=== PATIENT | female | born 1960 | race American Indian/Alaskan Native ===

== ENCOUNTER 2016-04-16 16:10 | Emergency (ER) | payer MEDICAID ==
[2016-04-16 17:23] VITALS: BP 153/89
--- NOTE | 2016-04-16 21:10 | Emergency Department Report ---
- General Chief Complaint: Upper Respiratory Infection Stated Complaint: FLU SYMPTOMS Source: patient Mode of arrival: Ambulatory Limitations: No Limitations - History of Present Illness Initial Comments: 55-year-old known diabetic and hypertensive female comes in for flulike symptoms. Patient complains of cough fever nausea vomiting diarrhea a few days back. Now she symptoms have been present for the last 2 weeks. She does tell me that she had taken some once penicillin it seemed to help with her symptoms and it came right back. She admits to coughing up yellowish greenish sputum. She is currently on insulin Lantus 20 units daily at bedtime lisinopril 40 daily metformin 1000 3 times a day the parotid 10 mg by mouth twice a day amlodipine 5 mg by mouth daily. MD Complaint: fever, cough, sore throat, nasal congestion, sinus pain - Related Data Previous Rx's Medication Instructions Recorded Last Taken Type Cyclobenzaprine HCl [Flexeril 5 MG 5 mg PO Q8HR #20 tablet 01/07/15 Unknown Rx TAB] traMADol [Ultram 50 MG tab] 50 mg PO Q6HR PRN #20 tablet 01/07/15 Unknown Rx Azithromycin [Zithromax] 250 mg PO QDAY #6 tablet 04/16/16 Unknown Rx Ibuprofen [Motrin 800 MG tab] 800 mg PO Q8HR PRN #30 tablet 04/16/16 Unknown Rx Allergies Allergy/AdvReac Type Severity Reaction Status Date / Time No Known Allergies Allergy Verified 04/16/16 17:19 ED Review of Systems ROS: Stated complaint: FLU SYMPTOMS Other details as noted in HPI Constitutional: fever ENT: throat pain, congestion Respiratory: cough. denies: shortness of breath, SOB with exertion Cardiovascular: denies: chest pain, palpitations Gastrointestinal: nausea, vomiting, diarrhea Neurological: headache ED Past Medical Hx - Past Medical History Hx Hypertension: Yes Hx Diabetes: Yes Additional medical history: SLEEP APNEA. OBESITY - Surgical History Additional Surgical History: - Social History Smoking Status: Never Smoker Substance Use Type: None - Medications Home Medications: Home Medications Medication Instructions Recorded Confirmed Last Taken Type Cyclobenzaprine HCl [Flexeril 5 MG 5 mg PO Q8HR #20 tablet 01/07/15 Unknown Rx TAB] traMADol [Ultram 50 MG tab] 50 mg PO Q6HR PRN #20 tablet 01/07/15 Unknown Rx Azithromycin [Zithromax] 250 mg PO QDAY #6 tablet 04/16/16 Unknown Rx Ibuprofen [Motrin 800 MG tab] 800 mg PO Q8HR PRN #30 tablet 04/16/16 Unknown Rx ED Physical Exam - General Limitations: No Limitations General appearance: alert, in no apparent distress - Head Head exam: Present: atraumatic, normocephalic - Eye Eye exam: Present: normal appearance, PERRL, EOMI - ENT ENT exam: Present: normal orophraynx, mucous membranes moist, TM's normal bilaterally - Neck Neck exam: Present: normal inspection, full ROM. Absent: tenderness, lymphadenopathy - Respiratory Respiratory exam: Present: normal lung sounds bilaterally. Absent: respiratory distress, wheezes - Cardiovascular Cardiovascular Exam: Present: regular rate, normal rhythm, normal heart sounds - GI/Abdominal GI/Abdominal exam: Present: soft. Absent: distended, tenderness - Extremities Exam Extremities exam: Absent: tenderness, pedal edema ED Course Vital Signs 04/16/16 17:19 Temperature 98.4 F Pulse Rate 112 H Respiratory 20 Rate Blood Pressure 153/89 O2 Sat by Pulse 98 Oximetry ED Medical Decision Making - Medical Decision Making Patient's been evaluated by this provider and fast. Would discharge patient on a Z-Dustin will recommend her to get Tussi free Robitussin for your cough. Ibuprofen for pain was prescribed. Critical care attestation.: If time is entered above; I have spent that time in minutes in the direct care of this critically ill patient, excluding procedure time. ED Disposition Clinical Impression: Upper respiratory infection Qualifiers: URI type: unspecified URI Qualified Code(s): J06.9 - Acute upper respiratory infection, unspecified Disposition: DISCHARGED TO HOME OR SELFCARE Is pt being admited?: No Does the pt Need Aspirin: No Condition: Stable Instructions: Upper Respiratory Infection (ED) Additional Instructions: take medication as prescribed. Follow up with your Primary Care Provider in 3- 5 days in no improvement. Tussi Free Robitussin for cough. Prescriptions: Azithromycin [Zithromax] 250 mg PO QDAY #6 tablet Ibuprofen [Motrin 800 MG tab] 800 mg PO Q8HR PRN #30 tablet PRN Reason: anti-inflammatory/pain/fever Referrals: KODAK ARELLANO MD [Primary Care Provider] - 3-5 Days Forms: Work/School Release Form(ED)
[2016-04-16] MEDS ORDERED: TYLENOL #3 PO ONE (21:32)
== END 2016-04-16 21:19 | disposition home or self-care (01) ==
LOC: ED 16:10
DX: J06.9 Acute upper respiratory infection, unspecified (principal); I10 Essential (primary) hypertension; E11.9 Type 2 diabetes mellitus without complications
CPT/HCPCS: 82962; 99283

== ENCOUNTER 2017-04-03 23:12 | Emergency (ER) | payer MEDICAID ==
--- NOTE | 2017-04-04 02:40 | XRay Report ---
FINAL REPORT PROCEDURE: XR CHEST ROUTINE 2V TECHNIQUE: PA and lateral chest radiographs were obtained. CPT 59015 HISTORY: cough COMPARISON: No prior studies are available for comparison. FINDINGS: Heart: Normal. Mediastinum/Vessels: Normal. Lungs/Pleural space: Lungs are clear. There are no infiltrates, effusions or pneumothoraces.. Bony thorax: No acute osseous abnormality. Other: IMPRESSION: There is no acute cardiopulmonary abnormality..
--- NOTE | 2017-04-04 06:15 | Emergency Department Report ---
- General Chief Complaint: Upper Respiratory Infection Stated Complaint: COLD SX Time Seen by Provider: 04/04/17 06:10 Source: patient Mode of arrival: Ambulatory Limitations: No Limitations - History of Present Illness MD Complaint: cough, sore throat, rhinorrhea -: days(s) (2) Severity scale (0 -10): 8 Quality: burning Consistency: intermittent Improves With: other (has not tried any smwn-unr-vcczino meds) Context: sick contacts Associated Symptoms: myalgias, rhinorrhea, nasal congestion, cough Treatments Prior to Arrival: none - Related Data Previous Rx's Medication Instructions Recorded Last Taken Type Cyclobenzaprine HCl [Flexeril 5 MG 5 mg PO Q8HR #20 tablet 01/07/15 Unknown Rx TAB] traMADol [Ultram 50 MG tab] 50 mg PO Q6HR PRN #20 tablet 01/07/15 Unknown Rx Azithromycin [Zithromax] 250 mg PO QDAY #6 tablet 04/16/16 Unknown Rx Ibuprofen [Motrin 800 MG tab] 800 mg PO Q8HR PRN #30 tablet 04/16/16 Unknown Rx Benzonatate [Tessalon Perles] 100 mg PO Q8HR #15 capsule 04/04/17 Unknown Rx Loratadine [Claritin] 10 mg PO DAILY #30 tablet 04/04/17 Unknown Rx Allergies Allergy/AdvReac Type Severity Reaction Status Date / Time No Known Allergies Allergy Verified 04/16/16 17:19 ED Review of Systems ROS: Stated complaint: COLD SX Other details as noted in HPI Constitutional: denies: chills, fever Eyes: denies: eye pain, eye discharge, vision change ENT: throat pain, congestion (the congestion) Respiratory: cough Cardiovascular: denies: chest pain, palpitations Gastrointestinal: denies: abdominal pain, nausea, diarrhea Genitourinary: denies: urgency, dysuria, discharge Musculoskeletal: denies: back pain, joint swelling, arthralgia Skin: denies: rash, lesions Neurological: denies: headache, weakness, paresthesias ED Past Medical Hx - Past Medical History Hx Hypertension: Yes Hx Diabetes: Yes Additional medical history: SLEEP APNEA. OBESITY - Surgical History Additional Surgical History: - Social History Smoking Status: Never Smoker Substance Use Type: None - Medications Home Medications: Home Medications Medication Instructions Recorded Confirmed Last Taken Type Cyclobenzaprine HCl [Flexeril 5 MG 5 mg PO Q8HR #20 tablet 01/07/15 Unknown Rx TAB] traMADol [Ultram 50 MG tab] 50 mg PO Q6HR PRN #20 tablet 01/07/15 Unknown Rx Azithromycin [Zithromax] 250 mg PO QDAY #6 tablet 04/16/16 Unknown Rx Ibuprofen [Motrin 800 MG tab] 800 mg PO Q8HR PRN #30 tablet 04/16/16 Unknown Rx Benzonatate [Tessalon Perles] 100 mg PO Q8HR #15 capsule 04/04/17 Unknown Rx Loratadine [Claritin] 10 mg PO DAILY #30 tablet 04/04/17 Unknown Rx ED Physical Exam - General Limitations: No Limitations - Head Head exam: Present: atraumatic, normocephalic - Eye Eye exam: Present: normal appearance - ENT ENT exam: Present: mucous membranes moist - Respiratory Respiratory exam: Present: normal lung sounds bilaterally. Absent: respiratory distress - Neurological Exam Neurological exam: Present: alert, oriented X3 - Psychiatric Psychiatric exam: Present: normal affect, normal mood - Skin Skin exam: Present: warm, dry, intact, normal color. Absent: rash ED Course Vital Signs 04/04/17 00:45 Temperature 98.6 F Pulse Rate 96 H Respiratory 20 Rate Blood Pressure 162/87 O2 Sat by Pulse 100 Oximetry ED Medical Decision Making - Radiology Data Radiology results: report reviewed, image reviewed FINAL REPORT PROCEDURE: XR CHEST ROUTINE 2V TECHNIQUE: PA and lateral chest radiographs were obtained. CPT 84626 HISTORY: cough COMPARISON: No prior studies are available for comparison. FINDINGS: Heart: Normal. Mediastinum/Vessels: Normal. Lungs/Pleural space: Lungs are clear. There are no infiltrates, effusions or pneumothoraces.. Bony thorax: No acute osseous abnormality. Other: IMPRESSION: There is no acute cardiopulmonary abnormality.. Transcribed By: CO Dictated By: COLE BARAJAS MD Electronically Authenticated By: COLE BARAJAS MD Signed Date/Time: 04/03/172236 - Medical Decision Making Patient has been evaluated by this provider fast track. Prescription has influenza and chest x-ray was all within normal limits. Discharge patient on Tessalon Perles and Zyrtec have her follow-up with her primary care provider. Critical care attestation.: If time is entered above; I have spent that time in minutes in the direct care of this critically ill patient, excluding procedure time. ED Disposition Clinical Impression: Upper respiratory infection Qualifiers: URI type: unspecified URI Qualified Code(s): J06.9 - Acute upper respiratory infection, unspecified Disposition: - TO HOME OR SELFCARE Is pt being admited?: No Does the pt Need Aspirin: No Condition: Stable Instructions: Upper Respiratory Infection (ED) Additional Instructions: Take medication as prescribed. Follow-up with Dr. Malave in 3-5 days for follow- up. Prescriptions: Benzonatate [Tessalon Perles] 100 mg PO Q8HR #15 capsule Loratadine [Claritin] 10 mg PO DAILY #30 tablet Referrals: KASSANDRA LEVIN MD [Primary Care Provider] - 3-5 Days NEERAJ MALAVE MD [Staff Physician] - 3-5 Days
[2017-04-04 07:08] VITALS: BP 157/86
== END 2017-04-04 07:07 | disposition home or self-care (01) ==
LOC: ED 23:12
DX: J06.9 Acute upper respiratory infection, unspecified (principal); E11.9 Type 2 diabetes mellitus without complications; I10 Essential (primary) hypertension; G47.30 Sleep apnea, unspecified; E66.9 Obesity, unspecified
CPT/HCPCS: 71046; 87116; 87400; 87430

== ENCOUNTER 2018-06-15 22:25 | Emergency (ER) | payer SELFPAY | END 2018-06-16 04:45 | disposition left against medical advice (07) | LOC: ED 22:25 | DX: J34.89 Other specified disorders of nose and nasal sinuses (principal); Z53.21 Procedure and treatment not carried out due to patient leaving prior to being seen by health care provider ==

== ENCOUNTER 2021-02-27 11:49 | Emergency (ER) | payer SELFPAY ==
--- NOTE | 2021-02-27 13:19 | Emergency Department Report ---
Upper Extremity - HPI Chief Complaint: Extremity Injury, Upper Stated Complaint: BROKEN HAND/FINGER Time Seen by Provider: 02/27/21 13:08 Upper Extremity: Right Little Finger Occurred When: 1 Day Mechanism: Crush (patient states that her finger got caught between 2 carts at the grocery store ) Symptoms: Yes Pain with Movement, Yes Limited Range of Movement, Yes Swelling, No Deformity, No Numbness, No Weakness, No Bruising/Ecchymosis, No Laceration or Abrasion Other History: 60 year old female presents to ED with c/o right hand/finger injury. Patient states that yesterday around 4pm, she was at grocery store. She states she was trying to move about [address] the way when one of the buggies rolled back and her finger got caught in her buggy and a buggy that rolled back. She states since then she has been having pain and swelling and difficulty moving that right fifth finger. She is worried hand dominant. ED Review of Systems ROS: Stated complaint: BROKEN HAND/FINGER Other details as noted in HPI Comment: All other systems reviewed and negative Constitutional: denies: chills, fever Eyes: as per HPI ENT: denies: ear pain, throat pain, dental pain, hearing loss, epistaxis Respiratory: no symptoms reported. denies: cough, orthopnea, shortness of breath, SOB with exertion, SOB at rest, wheezing Cardiovascular: denies: chest pain, palpitations, dyspnea on exertion Gastrointestinal: denies: abdominal pain, nausea, vomiting, diarrhea, constipation, hematemesis, hematochezia Genitourinary: denies: urgency, dysuria, frequency, hematuria, discharge, abnormal menses, dyspareunia Musculoskeletal: joint swelling, arthralgia Skin: denies: rash, lesions, change in color, change in hair/nails, pruritus Neurological: denies: headache, weakness, numbness, paresthesias, confusion, abnormal gait, vertigo ED Past Medical Hx - Past Medical History Hx Hypertension: Yes Hx Diabetes: Yes Additional medical history: SLEEP APNEA. OBESITY - Surgical History Additional Surgical History: - Social History Smoking Status: Never Smoker Substance Use Type: None - Medications Home Medications: Home Medications Medication Instructions Recorded Confirmed Last Taken Type Cyclobenzaprine HCl [Flexeril 5 MG 5 mg PO Q8HR #20 tablet 01/07/15 Unknown Rx TAB] traMADoL [Ultram 50 MG tab] 50 mg PO Q6HR PRN #20 tablet 01/07/15 Unknown Rx Azithromycin [Zithromax] 250 mg PO QDAY #6 tablet 04/16/16 Unknown Rx Benzonatate [Tessalon Perles] 100 mg PO Q8HR #15 capsule 04/04/17 Unknown Rx Loratadine (Nf) [Claritin] 10 mg PO DAILY #30 tablet 04/04/17 Unknown Rx Ibuprofen [Motrin 800 MG tab] 800 mg PO Q8HR PRN #30 tablet 02/27/21 Unknown Rx Upper Extremity Exam - Exam General: Vital signs noted. No distress. Alert and acting appropriately. Head and Torso: No HEENT Abnormality, No Neck Tenderness, No Chest/Lungs Abnormality, No Abdominal Tenderness, No Back Tenderness Shoulder Exam: Yes Normal Range of Motion in Shoulder, No Shoulder Tenderness, No Clavicle Tenderness, No Shoulder Deformity, No AC Joint Tenderness Arm Exam: No Arm/Humerus Tenderness, No Arm Deformity Elbow: Yes Normal Range of Motion in Elbow, No Elbow Tenderness, No Elbow Deformity Forearm: No Forearm Tenderness, No Forearm Deformity, No Pain with Pronation, No Pain with Supination Wrist: Yes Normal ROM in Wrist, No Wrist Tenderness, No Wrist Deformity, No Snuffbox Tenderness, No Pain with Axial Thumb Compression Hand: Yes Digit Tenderness (TTP mainly at promixal and PIP of right 5th finger with mild swelling; no apparent ecchymosis, erythema, broken skin or deformity), No Normal ROM in Digit(s), No Digit(s) Deformity CMS Exam: Yes Normal Distal Pulses, Yes Normal Capillary Refill, Yes Normal Distal Sensation, No Broken Skin ED Course Vital Signs 02/27/21 12:00 Temperature 98.0 F Pulse Rate 99 H Respiratory 18 Rate Blood Pressure 121/72 [Right] O2 Sat by Pulse 98 Oximetry ED Medical Decision Making - Radiology Data Radiology results: report reviewed Patient: LUIS DANIEL EDWARDS MR#: [id number] : 1960 Acct:[id number] Age/Sex: 60 / F ADM Date: 02/27/21 Loc: ED Attending Dr: Ordering Physician: HANNA SIMMONS Date of Service: 02/27/21 Procedure(s): XR hand 3+V RT Accession Number(s): [id number] cc: HANNAALMA ROSA BUTLERMLEY Tory Time In Minutes: Right hand 3 views INDICATION: Finger injury FINDINGS: Alignment appears normal. No acute fracture is identified. Carpal bone alignment appears normal. Signer Name: Manas Clayton MD Signed: 02/27/2021 1:45 PM Workstation Name: [id number] Transcribed By: CW Dictated By: EDWIN CLAYTON MD Electronically Authenticated By: EDWIN CLAYTON MD Signed Date/Time: 02/27/211344 DD/ 44 TD/TT: Critical care attestation.: If time is entered above; I have spent that time in minutes in the direct care of this critically ill patient, excluding procedure time. ED Disposition Clinical Impression: Finger contusion Disposition: 01 HOME / SELF CARE / HOMELESS Is pt being admited?: No Does the pt Need Aspirin: No Condition: Stable Instructions: How to Use Cold Therapy, [id number], Contusion, [id number] Additional Instructions: There was no apparent fracture or dislocation on x-ray. Suspect finger contusion at this time. Recommend limited use of the finger, applying ice, and taking ibuprofen to help with the pain. You can alternate ibuprofen with Tylenol. If finger still is bothering you after 1 to 2 weeks I recommend follow-up with ict security specialist. If you do not have an ict security specialist 1 will be provided for you on your discharge instructions. Return to the ER if your symptoms worsens in any way. Prescriptions: Ibuprofen [Motrin 800 MG tab] 800 mg PO Q8HR PRN #30 tablet PRN Reason: anti-inflammatory/pain/fever Referrals: PRIMARY CAREMD [Primary Care Provider] - 3-5 Days LICHA TAYLOR MD [Staff Physician] - 3-5 Days Forms: Work/School Release Form(ED) Time of Disposition: 13:56
[2021-02-27] MEDS ORDERED: ACETAMINOPHEN 500 MG TAB PO ONE (13:23)
--- NOTE | 2021-02-27 13:50 | XRay Report ---
Right hand 3 views INDICATION: Finger injury FINDINGS: Alignment appears normal. No acute fracture is identified. Carpal bone alignment appears no rmal. Signer Name: Manas Clayton MD Signed: 02/27/2021 1:45 PM Workstation Name: [id number]
[2021-02-27 15:38] VITALS: BP 130/64
== END 2021-02-27 15:38 | disposition home or self-care (01) ==
LOC: ED 11:49
DX: S60.051A Contusion of right little finger without damage to nail, initial encounter (principal); I10 Essential (primary) hypertension; E11.9 Type 2 diabetes mellitus without complications; X58.XXXA Exposure to other specified factors, initial encounter; Y93.89 Activity, other specified; Y92.89 Other specified places as the place of occurrence of the external cause; Y99.8 Other external cause status
CPT/HCPCS: 99283